=== PATIENT | female | born 1970 ===

== ENCOUNTER 2020-09-02 12:33 | Day surgery (SDC) | payer OTHER ==
[~2020-09-02 12:33] MED LIST: ATIVAN2 M1 PO; CLONAZEPAM2 M1 PO; LAMICTAL (BLUE)25 MG PO; PROSC PO; RESTORIL PO; SYNTHROID PO; WELLBUTRIN XL150 M1 PO; ZOLOFT100 MG PO
== END 2020-09-02 20:20 | disposition home or self-care (01) ==
LOC: CIR.AMB 12:33
PROVIDERS: ATTEND Obstetrics & Gynecology Obstetrics
DX: N93.8 Other specified abnormal uterine and vaginal bleeding (principal)